=== PATIENT | male | born 1955 | race Caucasian/White ===

== ENCOUNTER 2016-09-27 16:08 | Emergency (ER) | payer BC ==
[~2016-09-27] VITALS: Ht 175.3 cm; Wt 104.5 kg
[2016-09-27] MEDS ORDERED: SODIUM CHLORIDE 0.9% 1,000ML IVBOLUS ONE (16:30)
[2016-09-27] MEDS ORDERED: SODIUM CHLORIDE FLUSH 10ML SYR IVF ONE (16:30)
[2016-09-27] MEDS ORDERED: ASPIRIN 81 MG TABLET CHEW PO ONE (16:30)
[2016-09-27 16:57] LABS: BLOOD UREA NITROGEN 10 mg/dL (7-18)
[2016-09-27 17:01] LABS: IS PT STATUS REG ER OR PRE ER? YES
[2016-09-27] MEDS ORDERED: ASPIRIN 81 MG TABLET CHEW ONE (17:47)
[2016-09-27 19:25] VITALS: BP 159/84
== END 2016-09-27 19:46 | disposition home or self-care (01) ==
LOC: ED 19:00
DX: J20.9 Acute bronchitis, unspecified (principal); I10 Essential (primary) hypertension; Z87.891 Personal history of nicotine dependence
CPT/HCPCS: 36415; 71020; 80048; 82040; 83605; 84484; 85025; 85379; 93005; 93970; 96360; 96361; 99285; J7030